=== PATIENT | male | born 1965 | race Caucasian/White ===

== ENCOUNTER → 2017-11-13 | Outpatient (CLI) | payer OTHER ==
[~2017-11-13] MED LIST: ASPI81TA50 PO; EZET10TA18 PO; OLME1TAB34 PO; OMEP20CA9 PO; ROSU20TA PO; VALS1TAB19 PO
== END | disposition home or self-care (01) ==
LOC: CFH 15:12
PROVIDERS: ATTEND Family Medicine
DX: M51.36 Other intervertebral disc degeneration, lumbar region (principal); M51.46 Schmorl's nodes, lumbar region
CPT/HCPCS: 72148

== ENCOUNTER 2018-04-23 13:16 | Emergency (ER) | payer OTHER ==
[~2018-04-23] VITALS: Ht 162.6 cm; Wt 92.0 kg
[2018-04-23 14:11] LABS: BASOPHILS # (AUTO) 0.04 x10^3/uL (0-0.1); BASOPHILS % (AUTO) 1 % (0-1); EOSINOPHILS # (AUTO) 0.05 x10^3/uL (0-0.4); EOSINOPHILS % (AUTO) 1 % (1-7); LYMPHOCYTES # (AUTO) 1.89 x10^3/uL (1-3.4); LYMPHOCYTES % (AUTO) 27 % (22-44); MD NO; MEAN CORPUSCULAR HEMOGLOBIN 30.4 pg (27.5-34.5); MEAN CORPUSCULAR HGB CONC 34.4 g/dL (33.2-36.2); MEAN CORPUSCULAR VOLUME 88.3 fL (81-97); MEAN PLATELET VOLUME 8.1 fL (7.4-10.4); MONOCYTES # (AUTO) 0.62 x10^3/uL (0.2-0.8); MONOCYTES % (AUTO) 9 % (2-9); NEUTROPHILS % (AUTO) 63 % (42-75); PLATELET COUNT 311 x10^3/uL (130-400); RED BLOOD COUNT 5.32 x10^6/uL (4.38-5.82); RED CELL DISTRIBUTION WIDTH 13.6 % (9.4-14.8)
[2018-04-23 14:24] LABS: ALBUMIN 4.6 g/dL (3.4-5.0); ANION GAP 11 mmol/L (5-15); CALCIUM 8.9 mg/dL (8.5-10.1); CHLORIDE 106 mmol/L (98-107); CREATININE 0.94 mg/dL (0.7-1.3)
[2018-04-23 14:30] LABS: T4 (THYROXINE) 10.1 mcg/dL (4.5-12.1); TROPONIN I < 0.015 ng/mL (0.000-0.045)
[2018-04-23 15:25] VITALS: BP 122/78
== END 2018-04-23 15:49 | disposition home or self-care (01) ==
LOC: ED 13:39
DX: R55 Syncope and collapse (principal); I10 Essential (primary) hypertension; E78.5 Hyperlipidemia, unspecified; M54.2 Cervicalgia; Z88.1 Allergy status to other antibiotic agents
CPT/HCPCS: 36415; 80048; 82040; 84436; 84443; 84484; 85025; 93005; 99285

== ENCOUNTER 2018-05-07 07:43 | Emergency (ER) | payer OTHER ==
[~2018-05-07] VITALS: Ht 162.6 cm; Wt 91.7 kg
[2018-05-07] MEDS ORDERED: ASPIRIN 81 MG TABLET CHEW PO ONE (08:00)
[2018-05-07] MEDS ORDERED: ASPIRIN 81 MG TABLET CHEW ONE (08:07)
[2018-05-07 08:24] LABS: BASOPHILS # (AUTO) 0.08 x10^3/uL (0-0.1); BASOPHILS % (AUTO) 2 % (0-1); EOSINOPHILS # (AUTO) 0.16 x10^3/uL (0-0.4); EOSINOPHILS % (AUTO) 3 % (1-7); LYMPHOCYTES # (AUTO) 1.98 x10^3/uL (1-3.4); LYMPHOCYTES % (AUTO) 36 % (22-44); MD NO; MEAN CORPUSCULAR HEMOGLOBIN 30.3 pg (27.5-34.5); MEAN CORPUSCULAR HGB CONC 34.4 g/dL (33.2-36.2); MEAN CORPUSCULAR VOLUME 88.2 fL (81-97); MEAN PLATELET VOLUME 7.7 fL (7.4-10.4); MONOCYTES % (AUTO) 9 % (2-9); NEUTROPHILS # (AUTO) 2.82 x10^3/uL (1.8-6.8); NEUTROPHILS % (AUTO) 51 % (42-75); PLATELET COUNT 339 x10^3/uL (130-400); RED BLOOD COUNT 5.07 x10^6/uL (4.38-5.82); RED CELL DISTRIBUTION WIDTH 13.6 % (9.4-14.8)
[2018-05-07 08:35] LABS: ALBUMIN 4.3 g/dL (3.4-5.0); ANION GAP 9 mmol/L (5-15); CALCIUM 8.8 mg/dL (8.5-10.1); CHLORIDE 106 mmol/L (98-107)
[2018-05-07 08:41] LABS: CREATININE 1.06 mg/dL (0.7-1.3); TROPONIN I < 0.015 ng/mL (0.000-0.045)
[2018-05-07 09:45] VITALS: BP 130/92
== END 2018-05-07 09:49 | disposition home or self-care (01) ==
LOC: ED 09:48
DX: R07.9 Chest pain, unspecified (principal); I10 Essential (primary) hypertension; E78.5 Hyperlipidemia, unspecified
CPT/HCPCS: 36415; 71045; 80048; 82040; 84484; 85025; 93005; 99284

== ENCOUNTER 2018-09-06 11:29 | Emergency (ER) | payer OTHER ==
[~2018-09-06] VITALS: Ht 162.6 cm; Wt 82.7 kg
[~2018-09-06 11:29] MED LIST changes: -ROSU20TA PO; +ROSU20TA2 PO
--- NOTE | 2018-09-06 12:09 | NUR ---
TASK RN NOTE: PT PRESENTS TO ED WITH C/O INTERMITTENT TREMORS TO ARMS, LEGS AND HANDS PRESENT FOR SEVERAL MONTHS. PT IS SCHEDULED TO BE SEEN BY A NEUROLOGIST FOR THIS PROBLEM ONE MONTH FROM NOW, BUT FELT A SENSATION OF VERTIGO THIS AM, WHILE STANDING. PT CALLED HIS PCP WHO RECOMMENDED EVALUATION IN ED. PT STATES VERTIGO HAS PASSED. PT REPORTS TREMORS BEGAN SHORTLY AFTER STARTING WELLBUTRIN, THIS WAS DC'D AND SWITCHED TO [place]OFT. PT STATES HE STILL HAS BEEN HAVING INTERMITTENT TREMORS SINCE THAT TIME. PT IS A&OX 4, RESPS EVEN AND UNLABORED, NEURO INTACT. 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 PT DENIES PAIN. ALL MONITORS IN PLACE, CALL LIGHT IN REACH. EKG COMPLETED IN TRIAGE. AWAITING LABWORK AND DISPO AT THIS TIME.
[2018-09-06] MEDS ORDERED: EZET10TA18 PO (12:19)
[2018-09-06] MEDS ORDERED: ZANTAC PO (12:19)
[2018-09-06] MEDS ORDERED: POTA10CA PO (12:19)
[2018-09-06] MEDS ORDERED: ZOLOFT PO (12:19)
[2018-09-06 12:20] VITALS: BP 103/62
[2018-09-06] MEDS ORDERED: CIPROFLOXACIN PO (12:20)
[2018-09-06 12:26] LABS: BASOPHILS # (AUTO) 0.03 x10^3/uL (0-0.1); BASOPHILS % (AUTO) 1 % (0-1); EOSINOPHILS # (AUTO) 0.05 x10^3/uL (0-0.4); EOSINOPHILS % (AUTO) 1 % (1-7); LYMPHOCYTES # (AUTO) 1.67 x10^3/uL (1-3.4); LYMPHOCYTES % (AUTO) 30 % (22-44); MD NO; MEAN CORPUSCULAR HEMOGLOBIN 29.1 pg (27.5-34.5); MEAN CORPUSCULAR HGB CONC 33.9 g/dL (33.2-36.2); MEAN PLATELET VOLUME 7.6 fL (7.4-10.4); MONOCYTES # (AUTO) 0.42 x10^3/uL (0.2-0.8); MONOCYTES % (AUTO) 8 % (2-9); NEUTROPHILS # (AUTO) 3.48 x10^3/uL (1.8-6.8); NEUTROPHILS % (AUTO) 62 % (42-75); PLATELET COUNT 397 x10^3/uL (130-400); RED BLOOD COUNT 4.94 x10^6/uL (4.38-5.82); RED CELL DISTRIBUTION WIDTH 14.1 % (9.4-14.8)
[2018-09-06 12:37] LABS: ALBUMIN 4.3 g/dL (3.4-5.0); ANION GAP 7 mmol/L (5-15); CALCIUM 8.8 mg/dL (8.5-10.1); CHLORIDE 111 mmol/L (98-107)
[2018-09-06 12:41] LABS: ALANINE AMINOTRANSFERASE 50 U/L (12-78); ALKALINE PHOSPHATASE 89 U/L (45-117); BILIRUBIN,TOTAL 0.8 mg/dL (0.2-1.0); CREATININE 1.03 mg/dL (0.7-1.3); TOTAL PROTEIN 7.6 g/dL (6.4-8.2)
--- NOTE | 2018-09-06 14:34 | NUR ---
Patient/Caregiver given discharge instructions and they have confirmed that they understand the instructions. Patient ambulatory with steady gait.
== END 2018-09-06 14:35 | disposition home or self-care (01) ==
LOC: ED 13:27
DX: R25.1 Tremor, unspecified (principal); Z87.891 Personal history of nicotine dependence; Z88.0 Allergy status to penicillin
CPT/HCPCS: 36415; 80053; 85025; 93005; 99284